=== PATIENT | female | born 1945 | race Caucasian/White ===

== ENCOUNTER → 2016-09-13 | Outpatient (CLI) | payer MEDICARE, BC ==
[~2016-09-13] MED LIST: APIX5TAB PO; FLEC100T PO; LEVO125T5 PO; LOSA1TAB16 PO; METO-95 PO; OMEP40CA6 PO; OMNIPAQUE 350 MG/ML, 100ML BOTTLE ONE
== END | disposition home or self-care (01) ==
LOC: RAD 08:35
PROVIDERS: ATTEND Family Medicine
DX: K76.0 Fatty (change of) liver, not elsewhere classified (principal); J98.11 Atelectasis; Z90.710 Acquired absence of both cervix and uterus; I70.0 Atherosclerosis of aorta
CPT/HCPCS: 36415; 74177; 82565; Q9967

== ENCOUNTER 2019-02-02 09:25 | Emergency (ER) | payer MEDICARE, BC ==
[~2019-02-02] VITALS: Ht 170.2 cm; Wt 90.0 kg
[2019-02-02 09:27] VITALS: BP 111/51
== END 2019-02-02 11:32 | disposition home or self-care (01) ==
LOC: ED 11:26
DX: L25.8 Unspecified contact dermatitis due to other agents (principal); T50.995A Adverse effect of other drugs, medicaments and biological substances, initial encounter; Y92.89 Other specified places as the place of occurrence of the external cause; K21.9 Gastro-esophageal reflux disease without esophagitis; I48.91 Unspecified atrial fibrillation; E03.9 Hypothyroidism, unspecified; I10 Essential (primary) hypertension; Z90.710 Acquired absence of both cervix and uterus; Z88.1 Allergy status to other antibiotic agents
CPT/HCPCS: 96374; 96375; 99283; J1200; J2930; J3490

== ENCOUNTER → 2020-01-12 | Outpatient (CLI) | payer MEDICARE, BC ==
[~2020-01-12] MED LIST changes: -LOSA1TAB16 PO; +LOSA1TAB19 PO; +OMEP40CA42 PO; -OMEP40CA6 PO; -OMNIPAQUE 350 MG/ML, 100ML BOTTLE ONE
== END | disposition home or self-care (01) ==
LOC: CFH 09:21
PROVIDERS: ATTEND Internal Medicine
DX: G44.319 Acute post-traumatic headache, not intractable (principal); M54.12 Radiculopathy, cervical region
CPT/HCPCS: 70450